=== PATIENT | female | born 1955 | race Hispanic/Latino ===

== ENCOUNTER 2019-06-26 05:45 | Emergency (ER) | payer BC ==
[2019-06-26] MEDS ORDERED: SODIUM BICARB 8.4% 50 MEQ/50 ML SYRINGE IV ONE (05:50)
[2019-06-26] MEDS ORDERED: CALCIUM CHLORIDE 1,000 MG/10 ML SYRINGE IV ONE (05:50)
[2019-06-26] MEDS ORDERED: DEXTROSE 50% IN WATER (25GM) 50 ML SYRINGE IV ONE (05:50)
[2019-06-26] MEDS ORDERED: EPINEPHrine 1:10,000 1 MG/10 ML SYRINGE ONE (05:50)
[2019-06-26] MEDS ORDERED: ATROPINE 0.1% (1 MG/10 ML) CARDIAC SYRINGE ONE (05:50)
[2019-06-26] MEDS ORDERED: SODIUM CHLORIDE 0.9% 1000 ML 2,000 ML IV ONE (06:10)
[2019-06-26] MEDS ORDERED: INSULIN REGULAR, HUMAN 100 UNITS/1 ML ONE (06:11)
[2019-06-26] MEDS ORDERED: SODIUM CHLORIDE 0.9% 1000 ML 2,000 ML ONE (06:13)
--- NOTE | 2019-06-26 06:34 | Emergency Department Report ---
ED CPR HPI - General Chief Complaint: Cardiac Arrest/CPR Stated Complaint: CARDIAC ARREST Time Seen by Provider: 06/26/19 05:45 Source: patient, EMS - History of Present Illness Initial Comments: The patient presents to the ED for cardiac Arrest. The patient's states he was called to the Bathroom by his because she was not filling well. The patient was found lying on the ground holding onto the bathtub. The states she begin to complain of not being able to breath when she became unresponsive. The states yesterday the patient had a blood pressure of 65/45 but did not want to come to the hospital. Per EMS the patient received CPR before there arrival. MD Complaint: stopped breathing Place: home Bystander CPR Performed: Yes Initial Findings in the Field: unresponsive ROSC in the Field: No Associated Injuries: No Treatments Prior to Arrival: BMV, epinephrine mgs # - Related Data Allergies Allergy/AdvReac Type Severity Reaction Status Date / Time No Known Allergies Allergy Unverified 06/26/19 08:02 ED Review of Systems ROS: Stated complaint: CARDIAC ARREST Other details as noted in HPI Comment: Unobtainable due to pts medical conditions ED Physical Exam - General General appearance: other (unresponsive) - Head Head exam: Present: atraumatic, normocephalic - Eye Eye exam: Present: normal appearance - ENT ENT exam: Present: mucous membranes dry - Neck Neck exam: Present: normal inspection - Respiratory Respiratory exam: Present: other (Bilateral Breath sounds with bagging) - Cardiovascular Cardiovascular Exam: Present: other (asystole) - GI/Abdominal GI/Abdominal exam: Present: soft. Absent: distended - Extremities Exam Extremities exam: Present: normal inspection - Back Exam Back exam: Present: normal inspection - Neurological Exam Neurological exam: Present: other (asystole ) - Psychiatric Psychiatric exam: Present: other (Not able to access due to the Patient's condition) - Skin Skin exam: Present: warm, dry, intact, normal color. Absent: rash ED Medical Decision Making - Medical Decision Making ACLS protocol followed please see code sheet details Patient received 5 doses of epinephrine and 2 doses atropine She was also given calcium gluconate and sodium bicarbonate There was a return of spontaneous circulation 3 times Time of is 6:25 AM Critical care attestation.: If time is entered above; I have spent that time in minutes in the direct care of this critically ill patient, excluding procedure time. ED Disposition Clinical Impression: Cardiac arrest Disposition: DC-20 Is pt being admited?: No Does the pt Need Aspirin: No Referrals: PRIMARY CARE, [Primary Care Provider] - 3-5 Days Time of Disposition: 06:25
== END 2019-06-26 07:30 ==
LOC: ED 05:45
DX: I46.9 Cardiac arrest, cause unspecified (principal)
CPT/HCPCS: 31500; 99285; J0171; J0461; J7030; J1815